=== PATIENT | male | born 1970 | race Two or more races ===

== ENCOUNTER 2019-09-11 19:53 | Emergency (ER) | payer OTHER ==
[~2019-09-11] VITALS: Ht 167.6 cm; Wt 77.1 kg
[2019-09-11] MEDS ORDERED: KETOROLAC TROMETHAMINE 30 MG/ML VIAL IV STA (20:19)
[2019-09-11] MEDS ORDERED: ONDANSETRON HCL INJ 2MG/ML 2ML 2 MG/ML VIAL IV STA (20:19)
[2019-09-11] MEDS ORDERED: HYDRALAZINE HCL 20 MG/ML VIAL IV ONE (20:20)
[2019-09-11] MEDS ORDERED: MORPHINE SULFATE INJ 4 MG/ML INJ 1ML IV ONE (20:30)
[2019-09-11] MEDS ORDERED: MORPHINE SULFATE INJ 4 MG/ML INJ 1ML IV PRN (20:30)
[2019-09-11] MEDS ORDERED: HYDRALAZINE HCL 20 MG/ML VIAL IV STA (21:17)
--- NOTE | 2019-09-11 21:19 | Diagnostic Imaging Report ---
EXAM: CT Abdomen and Pelvis WITHOUT contrast INDICATION: Abdominal pain COMPARISON: None. TECHNIQUE: Abdomen and pelvis were scanned utilizing a multidetector helical scanner from the lung base to the pubic symphysis without administration of IV contrast. Absence of intravenous contrast decreases sensitivity for detection of focal lesions and vascular pathology. Coronal and sagittal reformations were obtained. Routine protocol was performed. IV CONTRAST: None ORAL CONTRAST: None COMPLICATIONS: None RADIATION DOSE: Total DLP: 786 mGy*cm Estimated effective dose: (DLP x 0.015 x size factor) mSv CTDIvol has been reviewed. It is below the limits set by the Radiation Protocol Committee (RPC). Dose modulation, iterative reconstruction, and/or weight based adjustment of the mA/kV was utilized to reduce the radiation dose to as low as reasonably achievable. FINDINGS: LINES and TUBES: None. LOWER THORAX: Unremarkable HEPATOBILIARY: No focal hepatic lesions. No biliary ductal dilation. GALLBLADDER: No radio-opaque stones or sludge. No wall thickening. SPLEEN: No splenomegaly. PANCREAS: No focal masses or ductal dilatation. ADRENALS: No adrenal nodules KIDNEYS/URETERS: No hydronephrosis. No cystic or solid mass lesions. No stones. GI TRACT: The proximal duodenum and distal gastric antrum/pylorus is circumferentially thickened, there is subtle proximal duodenal luminal contour outpouching, and there is periduodenal fat stranding and mild prominence of the periduodenal lymph nodes. Small gastric hiatal hernia. No abnormal distention or evidence of bowel obstruction. Appendix is normal. PELVIC ORGANS/BLADDER: Nodular calcifications in the mildly enlarged prostate. LYMPH NODES: Slight prominence of periduodenal lymph nodes, largest measures 1 cm (series 3 image 69). No definite lymphadenopathy. VESSELS: Minimal calcifications in the aorta and major branches. PERITONEUM / RETROPERITONEUM: No free air or fluid. BONES: Mild degenerative changes in the spine. SOFT TISSUES: Unremarkable. IMPRESSION: 1. Findings of duodenitis and antral gastritis with possible ulceration.. Periduodenal lymph nodes are likely reactive, however, recommend gastroenterology referral. 2. Small gastric hiatal hernia. 3. Mild nodular prostatomegaly. Signed by: Jay Martinez DO on 09/11/2019 9:16 PM
[2019-09-11 21:49] VITALS: BP 159/77
[2019-09-11] MEDS ORDERED: LABETALOL HCL 20 MG/4 ML SYRINGE IV ONE (22:00)
[2019-09-11] MEDS ORDERED: LABETALOL HCL 20 ML ONE (22:06)
[2019-09-11] MEDS ORDERED: CLONIDINE HCL 0.1 MG TAB ONE (22:45)
[2019-09-11] MEDS ORDERED: CLONIDINE HCL 0.2 MG TAB PO ONE (22:45)
--- NOTE | 2019-09-11 22:53 | NUR ---
PT GIVEN FOOD.
== END 2019-09-11 23:44 | disposition home or self-care (01) ==
LOC: FSED 19:53
DX: R10.12 Left upper quadrant pain (principal); R10.32 Left lower quadrant pain; R11.0 Nausea
CPT/HCPCS: 74176; 96374; 96375; 96376; 99284; J0360; J1885; J2270; J2405